=== PATIENT | female | born 1995 | race Caucasian/White ===

== ENCOUNTER 2019-10-10 03:58 | Emergency (ER) | payer MEDICAID ==
[~2019-10-10] VITALS: Ht 160 cm; Wt 59.0 kg
--- NOTE | 2019-10-10 04:11 | NUR ---
PT PROVIDED WITH GOWN AND IS CHANGING AT THIS TIME.
--- NOTE | 2019-10-10 04:15 | NUR ---
THIS IS A 24Y F THAT COMES IN W/ C/O MIGRAINE LASTING 3DAYS WITH NAUSEA AND VOMITING. PT STS SHE HAS TAKEN ALL OF HER PREVENTATIVE MEDICATIONS AND HAS GOTTEN NO IMPROVEMENT. PT WAS SEEN RECENTLY AT [facility] THIS MONTH.
[2019-10-10] MEDS ORDERED: KETOROLAC 30 MG/1 ML ONE (04:48)
[2019-10-10] MEDS ORDERED: DIPHENHYDRAMINE 50 MG/ML, 1ML ONE (04:48)
[2019-10-10] MEDS ORDERED: METOCLOPRAMIDE 5 MG/ML, 2ML ONE (04:48)
[2019-10-10] MEDS ORDERED: KETOROLAC 30 MG/1 ML IVPush ONE (05:00)
[2019-10-10] MEDS ORDERED: SODIUM CHLORIDE FLUSH 10ML SYR IVF ONE (05:00)
[2019-10-10] MEDS ORDERED: SODIUM CHLORIDE 0.9% 1,000ML IVBOLUS ONE (05:00)
[2019-10-10] MEDS ORDERED: DIPHENHYDRAMINE 50 MG/ML, 1ML IVPush ONE (05:00)
[2019-10-10] MEDS ORDERED: METOCLOPRAMIDE 5 MG/ML, 2ML IVPush ONE (05:00)
[2019-10-10 05:22] VITALS: BP 106/64
--- NOTE | 2019-10-10 05:43 | NUR ---
AT BEDSIDE TO REASSESS PT AND DISCUSS POC
[2019-10-10] MEDS ORDERED: DEXAMETHASONE 4 MG/ML, 5ML ONE (05:47)
[2019-10-10] MEDS ORDERED: DEXAMETHASONE 4 MG/ML, 1ML IVPush ONE (06:00)
== END 2019-10-10 06:19 | disposition home or self-care (01) ==
LOC: ED 06:12
DX: G43.001 Migraine without aura, not intractable, with status migrainosus (principal); R11.2 Nausea with vomiting, unspecified
CPT/HCPCS: 96361; 96374; 96375; 99284; J1100; J1200; J1885; J2765; J7030

== ENCOUNTER 2019-10-27 06:46 | Emergency (ER) | payer MEDICAID ==
[~2019-10-27] VITALS: Ht 160 cm; Wt 60.4 kg
[2019-10-27] MEDS ORDERED: SODIUM CHLORIDE FLUSH 10ML SYR IVF ONE (07:30)
[2019-10-27] MEDS ORDERED: PROCHLORPERAZINE 5 MG/ML, 2ML IVPush ONE (07:30)
[2019-10-27] MEDS ORDERED: KETOROLAC 30 MG/1 ML IVPush ONE (07:30)
[2019-10-27] MEDS ORDERED: DIPHENHYDRAMINE 50 MG/ML, 1ML IVPush ONE (07:30)
[2019-10-27] MEDS ORDERED: SODIUM CHLORIDE 0.9% 1,000ML IVBOLUS ONE (07:30)
[2019-10-27] MEDS ORDERED: PROCHLORPERAZINE 5 MG/ML, 2ML ONE ×2 (07:34→07:36)
[2019-10-27] MEDS ORDERED: DIPHENHYDRAMINE 50 MG/ML, 1ML ONE (07:35)
[2019-10-27] MEDS ORDERED: KETOROLAC 30 MG/1 ML ONE ×2 (07:35→07:36)
--- NOTE | 2019-10-27 07:41 | NUR ---
PT WITH HX OF MIGRAINES, PT STATES SHE RAN OUT OF MIGRAINE MEDICATION AND HAS HAD PERSISTANT BLAND AND NAUSEA X2 DAYS. PT TO BP, CONT PULSE OX. PIV INITIATED PT MEDICATED PER MAR
--- NOTE | 2019-10-27 08:48 | NUR ---
PT APPEARS MUCH MORE COMFORTABLE, RESTING ON BED. PT STATES PAIN IS "BETTER" NOT RATING ON 0-10 SCALE
[2019-10-27 09:14] VITALS: BP 97/62
== END 2019-10-27 09:36 | disposition home or self-care (01) ==
LOC: ED 07:14
DX: G43.009 Migraine without aura, not intractable, without status migrainosus (principal); R11.2 Nausea with vomiting, unspecified
CPT/HCPCS: 96361; 96374; 96375; 99284; J0780; J1200; J1885; J7030

== ENCOUNTER 2019-11-04 01:55 | Emergency (ER) | payer MEDICAID ==
[2019-11-04] MEDS ORDERED: DIPHENHYDRAMINE 50 MG/ML, 1ML ONE (02:25)
[2019-11-04] MEDS ORDERED: PROCHLORPERAZINE 5 MG/ML, 2ML ONE (02:25)
[2019-11-04] MEDS ORDERED: DEXAMETHASONE 4 MG/ML, 5ML ONE (02:26)
[2019-11-04] MEDS ORDERED: MORPHINE SULFATE 4 MG/ML, 1ML ONE (02:26)
--- NOTE | 2019-11-04 05:00 | NUR ---
See paper chart.
[2019-11-04 06:23] VITALS: BP 88/47
[2019-11-04 06:29] LABS: CULTURE INDICATED? YES; MICROSCOPIC INDICATED
[2019-11-04 08:04] LABS: ANION GAP 6 mmol/L (5-15); CALCIUM 8.3 mg/dL (8.5-10.1); CHLORIDE 106 mmol/L (98-107); CREATININE 0.55 mg/dL (0.55-1.02)
--- NOTE | 2019-11-04 08:19 | NUR ---
VERIFIED PT RH POSITIVE WITH RIDDHI RANGEL TO PROCEED WITH DISCHARGE.
[2019-11-04 09:53] LABS: BASOPHILS # (AUTO) 0.07 x10^3/uL (0-0.1); BASOPHILS % (AUTO) 1 % (0-1); EOSINOPHILS # (AUTO) 0.18 x10^3/uL (0-0.4); EOSINOPHILS % (AUTO) 2 % (1-7); LYMPHOCYTES # (AUTO) 2.12 x10^3/uL (1-3.4); LYMPHOCYTES % (AUTO) 23 % (22-44); MD NO; MEAN CORPUSCULAR HEMOGLOBIN 30.3 pg (27.0-34.8); MEAN CORPUSCULAR HGB CONC 33.5 g/dL (32.4-35.8); MEAN CORPUSCULAR VOLUME 90.6 fL (80-100); MEAN PLATELET VOLUME 7.8 fL (7.4-10.4); MONOCYTES # (AUTO) 0.65 x10^3/uL (0.2-0.8); MONOCYTES % (AUTO) 7 % (2-9); NEUTROPHILS % (AUTO) 67 % (42-75); PLATELET COUNT 255 x10^3/uL (130-400); RED BLOOD COUNT 4.27 x10^6/uL (3.82-5.3); RED CELL DISTRIBUTION WIDTH 13.1 % (9.6-15.2)
== END 2019-11-04 08:23 | disposition home or self-care (01) ==
LOC: ED 04:12
DX: O26.892 Other specified pregnancy related conditions, second trimester (principal); O21.9 Vomiting of pregnancy, unspecified; G43.009 Migraine without aura, not intractable, without status migrainosus; Z3A.20 20 weeks gestation of pregnancy
CPT/HCPCS: 36415; 76815; 80048; 81001; 84702; 85025; 86901; 87086; 99284

== ENCOUNTER 2020-05-28 12:14 | Emergency (ER) | payer MEDICAID ==
[~2020-05-28] VITALS: Ht 160 cm; Wt 58.0 kg
--- NOTE | 2020-05-28 12:23 | NUR ---
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 PT ASSISTED TO BED, C-SPINE PRECAUTIONS IN PLACE WITH C-COLLAR. DISCUSSED PT WITH DR. ALEXIS, TO SEE PT.
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
[2020-05-28] MEDS ORDERED: ONDANSETRON 2MG/ML, 2ML ONE (13:15)
[2020-05-28] MEDS ORDERED: MORPHINE SULFATE 4 MG/ML, 1ML ONE (13:15)
--- NOTE | 2020-05-28 13:23 | NUR ---
pt to rad. as
[2020-05-28] MEDS ORDERED: MORPHINE SULFATE 4 MG/ML, 1ML IVPush PRN (13:30)
[2020-05-28] MEDS ORDERED: ONDANSETRON 2MG/ML, 2ML IVPush ONE (13:30)
[2020-05-28] MEDS ORDERED: SODIUM CHLORIDE FLUSH 10ML SYR IVF ONE (13:30)
[2020-05-28] MEDS ORDERED: SODIUM CHLORIDE 0.9% 1,000ML IVBOLUS ONE (14:00)
[2020-05-28 14:03] LABS: ALBUMIN 3.7 g/dL (3.4-5.0); ANION GAP 4 mmol/L (5-15); BASOPHILS # (AUTO) 0.05 x10^3/uL (0-0.1); BASOPHILS % (AUTO) 1 % (0-1); CALCIUM 8.8 mg/dL (8.5-10.1); CHLORIDE 104 mmol/L (98-107); CREATININE 0.79 mg/dL (0.55-1.02); EOSINOPHILS % (AUTO) 2 % (1-7); LYMPHOCYTES # (AUTO) 2.97 x10^3/uL (1-3.4); LYMPHOCYTES % (AUTO) 34 % (22-44); MD NO; MEAN CORPUSCULAR HEMOGLOBIN 29.8 pg (27.0-34.8); MEAN PLATELET VOLUME 7.9 fL (7.4-10.4); MONOCYTES # (AUTO) 0.59 x10^3/uL (0.2-0.8); MONOCYTES % (AUTO) 7 % (2-9); NEUTROPHILS # (AUTO) 4.94 x10^3/uL (1.8-6.8); NEUTROPHILS % (AUTO) 57 % (42-75); PLATELET COUNT 324 x10^3/uL (130-400); RED BLOOD COUNT 4.63 x10^6/uL (3.82-5.3); RED CELL DISTRIBUTION WIDTH 13.1 % (9.6-15.2)
--- NOTE | 2020-05-28 14:49 | NUR ---
results wnl up for recheck. as
[2020-05-28 15:32] VITALS: BP 105/63
--- NOTE | 2020-05-28 15:32 | NUR ---
LESLEY RN: DR ALEXANDRA HAS UPDATED PATIENT.
== END 2020-05-28 15:41 | disposition home or self-care (01) ==
LOC: ED 14:48
DX: M54.2 Cervicalgia (principal); M54.6 Pain in thoracic spine; G43.909 Migraine, unspecified, not intractable, without status migrainosus; V49.40XA Driver injured in collision with unspecified motor vehicles in traffic accident, initial encounter; Y93.89 Activity, other specified; Y92.488 Other paved roadways as the place of occurrence of the external cause; Y99.8 Other external cause status
CPT/HCPCS: 36415; 71045; 72020; 72050; 80048; 82040; 85025; 96361; 96374; 96375; 99284; J2270; J2405; J7030

== ENCOUNTER 2021-02-18 06:44 | Emergency (ER) | payer MEDICAID ==
[~2021-02-18] VITALS: Ht 160 cm; Wt 58.4 kg
[2021-02-18] MEDS ORDERED: DIPHENHYDRAMINE 50 MG/ML, 1ML ONE (07:14)
[2021-02-18] MEDS ORDERED: METOCLOPRAMIDE 5 MG/ML, 2ML ONE (07:14)
[2021-02-18] MEDS ORDERED: KETOROLAC 30 MG/1 ML ONE (07:14)
[2021-02-18] MEDS ORDERED: KETOROLAC 30 MG/1 ML IVPush ONE (07:30)
[2021-02-18] MEDS ORDERED: METOCLOPRAMIDE 5 MG/ML, 2ML IVPush ONE (07:30)
[2021-02-18] MEDS ORDERED: SODIUM CHLORIDE 0.9% 1,000ML IVBOLUS ONE (07:30)
[2021-02-18] MEDS ORDERED: DIPHENHYDRAMINE 50 MG/ML, 1ML IVPush ONE (07:30)
--- NOTE | 2021-02-18 07:30 | NUR ---
IV PLACED, MEDS AND IVF BOLUS GIVEN PER ERP ORDER. VSS/UPDATED IN COMPUTER. CALL LIGHT WITHIN REACH.
[2021-02-18 08:54] VITALS: BP 95/62
--- NOTE | 2021-02-18 09:00 | NUR ---
PT STATES MIGRAINE GONE. VSS/UPDATED IN COMPUTER. CALL LIGHT WITHIN REACH. PT FOR RECHECK.
== END 2021-02-18 09:44 | disposition home or self-care (01) ==
LOC: ED 09:37
DX: G43.919 Migraine, unspecified, intractable, without status migrainosus (principal); R11.2 Nausea with vomiting, unspecified
CPT/HCPCS: 96361; 96374; 96375; 99284; J1200; J1885; J2765; J7030